=== PATIENT | male | born 1970 | race Caucasian/White ===

== ENCOUNTER 2018-04-16 11:09 | Emergency (ER) | payer OTHER ==
[2018-04-16 11:13] VITALS: PULSE 64; TEMP 97; BMI 25.7
--- NOTE | 2018-04-16 11:48 | PDOC ---
History of Present Illness - General Chief Complaint: Injury Stated Complaint: INJURY Time Seen by Provider: 04/16/18 11:37 History Source: Patient Exam Limitations: Clinical Condition - History of Present Illness Initial Comments: 04/16/18 11:52 Patient with no sick the past medical history present with complain of left wrist pain status post fall in the shower hitting the left side of ribs. Patient denies hitting head or loss of consciousness. Patient reported he slipped and fell. Denies any other symptoms. Patient denies shortness of breath , coughing blood or any other symptoms Timing/Duration: 1-3 hours Past History - Past Medical History Allergies/Adverse Reactions: Allergies Allergy/AdvReac Type Severity Reaction Status Date / Time No Known Allergies Allergy Verified 04/16/18 11:12 Home Medications: Ambulatory Orders Ibuprofen 800 mg PO Q8H PRN #20 tablet 04/16/18 Miscellaneous Medical Supply [Outpatient Order] 1 each ASDIR #1 each Asthma: Yes COPD: No - Suicide/Smoking/Psychosocial Hx Smoking History: Never smoked Have you smoked in the past 12 months: No Number of Cigarettes Smoked Daily: 0 Hx Alcohol Use: No Drug/Substance Use Hx: No Review of Systems - Review of Systems Able to Perform ROS?: Yes Is the patient limited Kosovan proficient: No Constitutional: No: Chills, Diaphoresis, Fever, Loss of Appetite, Malaise, Night Sweats, Weakness, Weight Stable, Unintentional Wgt. Loss, Unexplained wgt Loss, Other HEENTM: No: Eye Pain, Blurred Vision, Tearing, Recent change in vision, Double Vision, Cataracts, Ear Pain, Ocular Prothesis, Ear Discharge, Nose Pain, Nose Congestion, Tinnitus, Nose Bleeding, Hearing Loss, Throat Pain, Throat Swelling , Mouth Pain, Dental Problems, Difficulty Swallowing, Mouth Swelling, Other Respiratory: No: Cough, Orthopnea, Shortness of Breath, SOB with Exertion, SOB at Rest, Stridor, Wheezing, Productive cough, Hemoptysis, Other Cardiac (ROS): No: Chest Pain, Edema, Irregular Heart Rate, Lightheadedness, Palpitations, Syncope, Chest Tightness, Other ABD/GI: No: Abdominal Distended, Abd. Pain w/ defecation, Blood Streaked Bowels , Constipated, Diarrhea, Difficulty Swallowing, Nausea, Poor Appetite, Poor Fluid Intake, Rectal Bleeding, Vomiting, Indigestion, Abdominal cramping, Tarry Stools, Other Musculoskeletal: Yes: Muscle Pain (left ribbs) Integumentary: Yes: See HPI All Other Systems: Reviewed and Negative *Physical Exam - Vital Signs Last Vital Signs Temp Pulse Resp BP Pulse Ox 97 F L 64 18 137/102 99 04/16/18 11:11 04/16/18 11:11 04/16/18 11:11 04/16/18 11:11 04/16/18 11:11 - Physical Exam Comments: 04/16/18 11:54 GENERAL: Well developed, well nourished. Awake and alert. No acute distress. HEENT: Normocephalic, atraumatic. PERRLA, EOMI. No conjunctival pallor. Sclera are non- icteric. Moist mucous membranes. Oropharynx is clear. NECK: Supple. Full ROM. No JVD. Carotid pulses 2+ and symmetric, without bruits. No thyromegaly. No lymphadenopathy. CARDIOVASCULAR: Regular rate and rhythm. No murmurs, rubs, or gallops. Distal pulses are 2+ and symmetric. PULMONARY: No evidence of respiratory distress. Lungs clear to auscultation bilaterally. No wheezing, rales or rhonchi. ABDOMINAL: Soft. Non-tender. Non-distended. No rebound or guarding. No organomegaly. Normoactive bowel sounds. MUSCULOSKELETAL: Moderate tenderness over left side of ribs over 5th to 8th left ribs . No bruising or visible injury on exam.Normal range of motion at all joints. No bony deformities EXTREMITIES: No cyanosis. No clubbing. No edema. No calf tenderness. SKIN: Warm and dry. Normal capillary refill. No rashes. No jaundice. NEUROLOGICAL: Alert, awake, appropriate. Cranial nerves 2-12 intact. No deficits to light touch and temperature in face, upper extremities and lower extremities. No motor deficits in the in face, upper extremities and lower extremities. Normoreflexic in the upper and lower extremities. Normal speech. Toes are down- going bilaterally. Gait is normal without ataxia. PSYCHIATRIC: Cooperative. Good eye contact. Appropriate mood and affect. General Appearance: Yes: Nourished, Appropriately Dressed. No: Apparent Distress ED Treatment Course - RADIOLOGY Radiology Studies Ordered: Category Date Time Status RIBS-LEFT SIDE [RAD] Stat Radiology 04/16/18 11:42 Ordered Medical Decision Making - Medical Decision Making 04/16/18 11:55 Patient with no sig Past medical history presenting with complain of left-sided wrist pain status post fall hitting left ribs. Exam shows moderate tenderness over 5th-8th left ribs. Rib series x-ray ordered to rule out acute fracture. Patient declined pain medication. Treat based on imaging results *DC/Admit/Observation/Transfer Diagnosis at time of Disposition: Contusion of rib on left side Qualifiers: Encounter type: initial encounter Qualified Code(s): S20.212A - Contusion of left front wall of thorax, initial encounter - Discharge Dispostion Disposition: HOME Condition at time of disposition: Stable Decision to Admit order: No - Prescriptions Prescriptions: Ibuprofen 800 mg PO Q8H PRN #20 tablet PRN Reason: ribs pain Miscellaneous Medical Supply [Outpatient Order] 1 each ASDIR #1 each - Referrals Referrals: Jeannie Peace MD [Primary Care Provider] - - Patient Instructions Printed Discharge Instructions: Contusion Additional Instructions: Take prescribed medication as needed for pain. Use binder prescribed to help with discomfort. - Post Discharge Activity
[2018-04-16] MEDS ORDERED: IBUPROFEN 400 MG TABLET (FP) PO ONE ×2 (11:59→12:03)
[2018-04-16 12:22] VITALS: BP 119/72
== END 2018-04-16 12:31 | disposition home or self-care (01) ==
LOC: JER 11:09 → JERFT 11:09
DX: S20.212A Contusion of left front wall of thorax, initial encounter (principal); W18.2XXA Fall in (into) shower or empty bathtub, initial encounter; Y93.E1 Activity, personal bathing and showering; Y92.031 Bathroom in apartment as the place of occurrence of the external cause; Y99.8 Other external cause status
CPT/HCPCS: 71101-TC-FY; 99281-25

== ENCOUNTER 2018-08-17 17:21 | Emergency (ER) | payer OTHER ==
[2018-08-17 17:49] VITALS: BP 144/93; PULSE 63; TEMP 98.6; BMI 25.7
--- NOTE | 2018-08-17 17:49 | PDOC ---
Rapid Medical Evaluation Time Seen by Provider: 08/17/18 17:44 Medical Evaluation: Allergies Allergy/AdvReac Type Severity Reaction Status Date / Time No Known Allergies Allergy Verified 08/17/18 17:44 08/17/18 17:44 I have performed a brief in-person evaluation of this patient. The patient presents with a chief complaint of: right 3rd digit laceration Pertinent physical exam findings: laceration through fingernal of 3rd finger of right hand I have ordered the following: xray, td The patient will proceed to the ED for further evaluation. Discharge Disposition - Diagnosis Laceration - Referrals - Patient Instructions - Post Discharge Activity
[2018-08-17] MEDS ORDERED: DIPHTH,PERTUSS(ACELL),TET 0.5 ML DISP.SYRIN IM ONE ×2 (17:50→19:29)
[2018-08-17] MEDS ORDERED: ceFAZolin 2 GRAM PREMIX BAG IVPB ONE (18:36)
--- NOTE | 2018-08-17 19:34 | PDOC ---
History of Present Illness - General Chief Complaint: Injury Stated Complaint: FINGER INJURY Time Seen by Provider: 08/17/18 17:44 - History of Present Illness Initial Comments: 08/17/18 19:28 48-year-old male without comorbidities presents for evaluation after slamming his right middle finger into a door accidentally earlier today just prior to arrival. He treated with local wound care and direct pressure Past History - Past Medical History Allergies/Adverse Reactions: Allergies Allergy/AdvReac Type Severity Reaction Status Date / Time No Known Allergies Allergy Verified 08/17/18 17:44 Home Medications: Ambulatory Orders Ibuprofen 800 mg PO Q8H PRN #20 tablet 04/16/18 Miscellaneous Medical Supply [Outpatient Order] 1 each ASDIR #1 each Cephalexin [Keflex] 500 mg PO QID #25 capsule 08/17/18 Ibuprofen [Motrin -] 600 mg PO TID #30 tablet 08/17/18 Asthma: Yes COPD: No - Immunization History Immunization Up to Date: Yes - Suicide/Smoking/Psychosocial Hx Smoking History: Never smoked Have you smoked in the past 12 months: No Number of Cigarettes Smoked Daily: 0 Hx Alcohol Use: No Drug/Substance Use Hx: No Review of Systems - Review of Systems Musculoskeletal: Yes: See HPI *Physical Exam - Vital Signs Last Vital Signs Temp Pulse Resp BP Pulse Ox 98.6 F 63 16 144/93 97 08/17/18 17:45 08/17/18 17:45 08/17/18 17:45 08/17/18 17:45 08/17/18 17:45 - Physical Exam Comments: 08/17/18 19:29 There is an open fracture of the distal phalanx at the right fifth finger. The proximal nail fold is displaced from its matrix in bed. There are no gross motor deficits. Tenderness is appropriate Moderate Sedation - Procedure Monitoring Vital Signs: Procedure Monitoring Vital Signs Temperature 98.6 F 08/17/18 17:45 Pulse Rate 63 08/17/18 17:45 Respiratory Rate 16 08/17/18 17:45 Blood Pressure 144/93 08/17/18 17:45 O2 Sat by Pulse Oximetry (%) 97 08/17/18 17:45 Medical Decision Making - Medical Decision Making 08/17/18 19:29 Is a charisse fracture of the right middle finger Under aseptic technique a digital block using 6 mL of 1% lidocaine without epinephrine was used the wound was copiously irrigated after appropriate anesthesia. The nail was sutured with 3-0 chromic gut back into the nail fold 3 separate sutures were used this was tolerated well a dry sterile dressing was placed. *DC/Admit/Observation/Transfer Diagnosis at time of Disposition: Laceration, Open fracture of tuft of distal phalanx of finger - Discharge Dispostion Disposition: HOME Condition at time of disposition: Stable Decision to Admit order: No - Referrals Referrals: Jeannie Peace MD [Primary Care Provider] - Rogerio Gardiner MD [Staff Physician] - - Patient Instructions Additional Instructions: Please take the antibiotics and finish the course as directed. Your tetanus was updated today. The Motrin is one pill 3 times a day with food discontinue the medication if it bothers her stomach. He may take Tylenol if he needs something additional for pain. It is very poor and they follow-up with hand surgery within the next 1-2 days for further evaluation and treatment options. Return to the emergency room should symptoms worsen or go unresolved or if you should have any further issues. - Post Discharge Activity
== END 2018-08-17 19:58 | disposition home or self-care (01) ==
LOC: JERFT 17:21
PROC: 0HQFXZZ Repair Right Hand Skin, External Approach (ICD-10-PCS; principal; 2018-08-17)
PROC: 3E03329 Introduction of Other Anti-infective into Peripheral Vein, Percutaneous Approach (ICD-10-PCS; 2018-08-17)
PROC: 3E0234Z Introduction of Serum, Toxoid and Vaccine into Muscle, Percutaneous Approach (ICD-10-PCS; 2018-08-17)
DX: S61.312A Laceration without foreign body of right middle finger with damage to nail, initial encounter (principal); S62.632B Displaced fracture of distal phalanx of right middle finger, initial encounter for open fracture; W23.1XXA Caught, crushed, jammed, or pinched between stationary objects, initial encounter; Y93.89 Activity, other specified; Y92.89 Other specified places as the place of occurrence of the external cause
CPT/HCPCS: 12001-25; 73140-TC-RT-FY; 90471; 90715; 96374; 99281-25